=== PATIENT | male | born 1990 | race Caucasian/White ===

== ENCOUNTER 2021-01-22 14:09 | Observation (INO) ==
[2021-01-22] MEDS ORDERED: Isovue-370 500 ML BOTTLE IVP ONE (14:29)
[2021-01-22 15:01] LABS: Basophils % 0.2 %; Eosinophils # 0.1 K/mcL (0.0-0.6); Eosinophils % 2.1 %; Hematocrit 39.4 % (37.5-50.1); Hemoglobin 13.1 g/dL (12.9-16.9); Immature Granulocytes % 0.2 % (0-4); Lymphocytes # 1.3 K/mcL (0.6-4.6); Lymphocytes % 19.9 %; Mean Corpuscular HGB Conc 33.2 g/dL (31.6-35.5); Mean Corpuscular Hemoglobin 27.2 pg (28.0-33.3); Mean Corpuscular Volume 81.7 fL (83.0-100.0); Mean Platelet Volume 9.3 fL (9.4-12.4); Monocytes # 0.6 K/mcL (0.0-1.3); Monocytes % 8.8 %; Neutrophils # 4.3 K/mcL (1.6-8.9); Platelet Count 388 K/mcL (140-400); Red Blood Count 4.82 M/mcL (4.19-5.50); Red Cell Distribution Width 12.7 % (11.5-14.5); Segmented Neutrophils % 68.8 %; White Blood Count 6.3 K/mcL (4.3-11.1)
[2021-01-22 15:19] LABS: Alanine Aminotransferase 120 Units/L (7-52); Albumin/Globulin Ratio 1.2 (1.1-2.2); Alkaline Phosphatase 108 Units/L (34-104); Aspartate Amino Transferase 68 Units/L (13-39); BUN/Creatinine Ratio 21 (6-26); Bilirubin,Total 0.6 mg/dL (0.3-1.0); Blood Urea Nitrogen 16 mg/dL (6-20); Carbon Dioxide 21 mEq/L (23-29); Chloride 107 mEq/L (98-107); Globulin 3.3 g/dL (2.4-3.5); Glucose 114 mg/dL (70-105); Osmolality,Calculated 292 (280-300); Potassium 3.3 mEq/L (3.5-5.1); Sodium 140 mEq/L (136-145); Total Protein 7.3 g/dL (6.4-8.9); eGFR For African Americans > 60 (> 60); eGFR For Non-African Americans > 60 (> 60)
[2021-01-22] MEDS ORDERED: Piperacillin/Tazobactam 3.375 GM in Water for inj. (sterile) 20 ML IVP ONE (16:57)
[2021-01-22] MEDS ORDERED: Potassium Chloride Elixir 20 MEQ/15 ML UDC PO ONE (17:09)
[2021-01-22] MEDS ORDERED: 0.9 % Sodium Chloride 1,000 ML IVC ONE (17:31)
[2021-01-22] MEDS ORDERED: *HR* OxyCODONE/APAP 10/325 TABLET PO PRN (18:44)
[2021-01-22] MEDS: 0.9 % Sodium Chloride 1,000 ML IVC SCH (19:01)
[2021-01-23] MEDS: Piperacillin/Tazobactam 3.375 GM in 0.9 % Sodium Chloride Mini Bag 100 ML IVPB SCH ×3 (00:26→17:05)
[2021-01-23] MEDS ORDERED: Promethazine 6.25 MG in Water for inj. (sterile) 20 ML IVPB PRN (06:58)
[2021-01-23] MEDS ORDERED: *HR* HYDROmorphone PF 0.5 MG/0.5 ML SYRINGE IVP PRN (06:58)
[2021-01-23] MEDS ORDERED: Ondansetron 4 MG/2 ML VIAL IVP PRN (06:58)
[2021-01-23] MEDS ORDERED: *HR* OxyCODONE Immed Rel 5 MG TABLET PO PRN (06:58)
[2021-01-23] MEDS ORDERED: *HR* Rocuronium Bromide 50 MG/5 ML VIAL ONE (07:27)
[2021-01-23] MEDS ORDERED: *HR* Midazolam HCl 2 MG/2 ML VIAL ONE (07:27)
[2021-01-23] MEDS ORDERED: *HR* FentaNYL (PF) 100 MCG/2 ML VIAL ONE (07:27)
[2021-01-23] MEDS ORDERED: Ondansetron 4 MG/2 ML VIAL ONE (07:27)
[2021-01-23] MEDS ORDERED: *HR* Propofol 200 MG/20 ML VIAL IVP ONE (07:27)
[2021-01-23] MEDS ORDERED: Lidocaine -MPF 2% 2 ML VIAL ONE (07:27)
[2021-01-23] MEDS ORDERED: *HR* Succinylcholine 200 MG/10 ML VIAL IVP ONE (07:27)
[2021-01-23] MEDS ORDERED: *HR* OxyCODONE/APAP 10/325 TABLET PO PRN (10:00)
[2021-01-23] MEDS: 0.9 % Sodium Chloride 1,000 ML IVC SCH ×2 (10:34→12:04)
[2021-01-23] MEDS: Gabapentin 100 MG CAPSULE PO SCH ×2 (12:04→17:05)
[2021-01-23] MEDS: *HR* Enoxaparin 120 MG/0.8 ML SYRINGE SQ SCH (17:05)
[2021-01-24] MEDS: Piperacillin/Tazobactam 3.375 GM in 0.9 % Sodium Chloride Mini Bag 100 ML IVPB SCH ×2 (00:59→08:11)
[2021-01-24] MEDS: Gabapentin 100 MG CAPSULE PO SCH (00:59)
[2021-01-24] MEDS: 0.9 % Sodium Chloride 1,000 ML IVC SCH (01:00)
[2021-01-24] MEDS: *HR* Enoxaparin 120 MG/0.8 ML SYRINGE SQ SCH (05:03)
[2021-01-24 07:26] VITALS: BP 105/68
[2021-01-24] MEDS ORDERED: methocarbamoL 500 MG TABLET PO PRN (10:02)
[2021-01-24] MEDS ORDERED: *HR* OxyCODONE/APAP 5/325 TABLET PO PRN (10:03)
[2021-01-24] MEDS ORDERED: *HR* OxyCODONE/APAP 10/325 TABLET PO PRN (10:05)
[2021-01-24] MEDS ORDERED: Gabapentin 300 MG CAPSULE PO SCH (10:15)
[2021-01-24] MEDS ORDERED: *HR* Rivaroxaban 15 MG TABLET PO SCH (21:00)
== END 2021-01-24 13:50 | disposition home health service (06) ==
LOC: 3ANU 14:09 → EMEROOARM 14:09 → 3ANU 17:30
PROVIDERS: ADMIT Surgery; ATTEND Surgery